=== PATIENT | female | born 1995 | race Caucasian/White ===

== ENCOUNTER 2018-06-24 13:15 | Emergency (ER) | payer OTHER ==
[~2018-06-24] VITALS: Ht 167.6 cm; Wt 90.7 kg
[2018-06-24] MEDS ORDERED: BIRTH CONTROL PO (13:20)
[2018-06-24] MEDS ORDERED: VISTARIL 25 MG25 M1 PO (13:21)
[2018-06-24 14:04] VITALS: BP 128/89
--- NOTE | 2018-06-25 10:58 | EKG ---
[place] [address] ELECTROCARDIOGRAM REPORT Name: LISSETHYAHIR Room: [facility] ([place], [place])#: [id number] Admission: 06/24/18 Attend Phys: Discharge: 06/24/18 Date of : [birth year] Report #: [id number] THIS REPORT FOR: //name// [facility] ED Test Date: 2018-06-24 Test Time: 13:20:33 Pat Name: YAHIR MONTANEZ Department: Room: Gender: F Crime Specialist: ELI : 1995 Requested By: Orlando Mcdonnell Order Number: [id number] MD: Christ Gould Measurements Intervals [place] Rate: 108 P: 90 [place]: 129 QRS: 82 QRSD: 75 T: -11 QT: 323 QTc: 433 Interpretive Statements Sinus tachycardia Borderline repolarization abnormality No previous ECG available for comparison Electronically Signed On 06-25-2018 10:57:58 CDT by Christ Gould [email or web address] <ELECTRONICALLY SIGNED> By: Candido Gould MD, [facility] 06/25/18 1057 1320 1320 Candido Gould MD, FACC /EPI
== END 2018-06-24 14:05 | disposition home or self-care (01) ==
LOC: M.ERS 13:15
DX: F41.0 Panic disorder [episodic paroxysmal anxiety] (principal); F17.210 Nicotine dependence, cigarettes, uncomplicated; Z88.8 Allergy status to other drugs, medicaments and biological substances